=== PATIENT | female | born 1960 | race Caucasian/White ===

== ENCOUNTER 2021-02-25 06:10 | Observation (INO) | payer MEDICAID, SELFPAY ==
[2021-02-25] VITALS (9 sets, daily range): BP systolic 113–165; BP diastolic 71–100; PULSE 67–102; RESP 15–20; TEMP 36.8–37.1; O2SAT 94–99; BMI 24.6; BMI 23.8
--- NOTE | 2021-02-25 06:38 | CT_ITS ---
PROCEDURE INFORMATION: Exam: CT Abdomen And Pelvis With Contrast Exam date and time: 02/25/2021 6:38 AM Age: 61 years old Clinical indication: Abdominal pain; Patient HX: Epigastric pain with vomiting; Additional info: Upper abd pain TECHNIQUE: Imaging protocol: Computed tomography of the abdomen and pelvis with contrast. Radiation optimization: All CT scans at this facility use at least one of these dose optimization techniques: automated exposure control; mA and/or kV adjustment per patient size (includes targeted exams where dose is matched to clinical indication); or iterative reconstruction. Contrast material: ISOVUE; Contrast volume: 75 ml; Contrast route: IV; COMPARISON: No relevant prior studies available. FINDINGS: Lungs: Minor dependent right basal atelectasis. Mediastinal space: Possible tiny hiatal hernia. Liver: Mild hepatomegaly. Gallbladder and bile ducts: Calcified stones within the gallbladder. Dilated common and possibly central intrahepatic biliary ducts. Pancreas: Pancreatic calcifications. Spleen: Normal. No splenomegaly. Adrenal glands: Normal. No mass. Kidneys and ureters: Atrophic left kidney. Stomach and bowel: Unremarkable. No obstruction. No mucosal thickening. Appendix: No evidence of appendicitis. Intraperitoneal space: Unremarkable. No free air. No significant fluid collection. Vasculature: Atheromatous vascular calcifications. Lymph nodes: Unremarkable. No enlarged lymph nodes. Urinary bladder: Unremarkable as visualized. Reproductive: Unremarkable as visualized. Bones/joints: Moderate-severe lower lumbar spondylosis with moderate L4-L5 listhesis and convex right scoliosis. Soft tissues: Unremarkable. IMPRESSION: 1. Cholelithiasis with dilated common and possibly central intrahepatic biliary ducts. Further evaluation regarding the distal common bile duct perhaps with MRCP may be useful in assessing for possible obstruction. 2. Pancreatic calcifications perhaps related to chronic pancreatitis. 3. Possible tiny hiatal hernia. 4. Other nonacute findings above.
[2021-02-25 06:41] LABS: Microscopic, Urine URINE MICROSCOPIC (MICROSCOPIC)
[2021-02-25 06:44] LABS: Appearance,Urine CLEAR (Clear); Bilirubin,Urine Negative (Negative); Blood, Urine 1+ (Negative); Color,Urine YELLOW (Yellow); Glucose,Urine (UA) Negative (Negative); Ketones,Urine Negative (Negative); Leukocyte Esterase,Urine TRACE (Negative); Nitrate,Urine Negative (Negative); Protein,Urine TRACE (Negative); Specific Gravity, Urine 1.025 (1.005-1.030); Urobilinogen,Urine 0.2 EU/dl (0.2)
[2021-02-25 06:45] LABS: Basophils # 0.1 K/mm3 (0-0.2); Basophils % 0.5 % (0.1-2.0); Eosinophils # 0.2 K/mm3 (0.0-0.4); Eosinophils % 1.9 % (0.1-12.0); Hematocrit 32.7 % (37.0-47.0); Lymphocytes # 1.5 K/mm3 (0.7-4.5); Lymphocytes % 12.5 % (10-50); Mean Corpuscular HGB Conc 30.6 g/dL (31.8-35.4); Mean Corpuscular Hemoglobin 28.7 pg (27.0-31.2); Mean Corpuscular Volume 93.6 fl (81-99); Mean Platelet Volume 6.9 fl (7.4-10.4); Monocytes # 0.5 K/mm3 (0.1-1.0); Monocytes % 4.3 % (1.7-9.3); Neutrophils # 9.9 K/mm3 (1.8-7.8); Neutrophils % 80.8 % (37.0-80.0); Platelet Count 406 K/mm3 (142-424); Red Cell Distribution Width 13.2 % (11.5-17.5); White Blood Count 12.2 K/mm3 (4.8-10.8)
[2021-02-25 06:48] LABS: Alanine Aminotransferase 11 U/L (12-78); Albumin Level 4.1 g/dl (3.5-5.0); Albumin/Globulin Ratio 1.1 (1.1-1.8); Alkaline Phosphatase 102 U/L (38-126); Amylase 83 U/L (30-110); Anion Gap 15.8 mEq/L (5-15); Aspartate Amino Transferase 21 U/L (14-36); Bilirubin,Total 0.4 mg/dl (0.2-1.3); Blood Urea Nitrogen 14 mg/dl (7-17); Calcium 9.8 mg/dl (8.4-10.2); Carbon Dioxide 16 mmol/L (22.0-30.0); Chloride 114 mmol/L (98-107); Creatinine Clearance Estimated 49 mL/min (50-200); Estimated Glomerular Filt Rate 42 ml/min (>60); GFR (African American) 51 ML/MIN (>60); Globulin 3.7 g/dL (1.3-3.2); Glucose 94 mg/dl (74-100); Lipase 64 U/L (23-300); Potassium 3.8 mmoL/L (3.5-5.1); Sodium 142 mmol/L (136-145); Total Protein,Serum 7.8 g/dl (6.3-8.2)
[2021-02-25 06:54] LABS: Bacteria,Urine Trace /lpf
[2021-02-25 06:54] LABS: C-Reactive Protein 11.4 mg/L (0-4)
--- NOTE | 2021-02-25 06:59 | XR_ITS ---
PROCEDURE INFORMATION: Exam: XR Chest Exam date and time: 02/25/2021 6:59 AM Age: 61 years old Clinical indication: Chest wall pain; Patient HX: Lower chest pain/ upper abdomen pain with vomiting TECHNIQUE: Imaging protocol: XR of the chest. Views: 2 views. COMPARISON: No relevant prior studies available. FINDINGS: Lungs: Hyperinflation. No consolidation. Pleural spaces: Unremarkable. No pleural effusion. No pneumothorax. Heart/Mediastinum: Unremarkable. No cardiomegaly. Bones/joints: Unremarkable. IMPRESSION: 1. Hyperinflation consistent with mild COPD. 2. Otherwise no acute pathology.
[2021-02-25 07:11] LABS: Erythrocyte Sedimentation Rate > 140 mm/hr (0-30)
--- NOTE | 2021-02-25 07:38 | HMH.EDNVD ---
ED Disposition Clinical Impression: Tobacco use Cholelithiasis Qualifiers: Cholelithiasis location: gallbladder Cholecystitis presence: without cholecystitis Biliary obstruction: without biliary obstruction Qualified Code(s): K80.20 - Calculus of gallbladder without cholecystitis without obstruction COPD (chronic obstructive pulmonary disease) Qualifiers: COPD type: unspecified COPD Qualified Code(s): J44.9 - Chronic obstructive pulmonary disease, unspecified Disposition: Admitted As Inpatient Condition on Discharge: Good Instructions: DI for Acute Abdominal Pain Referrals: Rodo Cordova MD [Primary Care Provider] - - Critical Care Critical Care Time: No Attestation: On 02/25/21, the high probability of a clinically significant, sudden or life threatening deterioration of the following system(s) required my full and direct attention, intervention and personal management. The time I documented below is in addition to time spent performing reported procedures but includes the following listed in this critical care notation. Medical Decision Making - Medical Records Medical records reviewed: Yes: I reviewed the patient's medical records. - Kervin Inquiry Pt receiving controlled substance: No Vital Signs: 02/25/21 06:25 02/25/21 07:01 Temperature 98.7 F Temperature Source Oral Pulse Rate 67 Pulse Rate [Right] 102 H Respiratory Rate 20 Blood Pressure 165/90 H Blood Pressure [Right Arm] 161/96 H Blood Pressure Mean 115 Blood Pressure Mean [Right Arm] 117 Blood Pressure Source [Right Arm] Automatic Cuff Blood Pressure Position [Right Arm] Supine 02 Sat by Pulse Oximetry 97 97 Oxygen Delivery Method Room Air - Lab Data Lab results reviewed: Yes: I reviewed the patient's lab results. Lab Results 02/25/21 06:20: Urine Color Yellow, Urine Appearance Clear, Urine pH 6.0, Ur Specific [place] 1.025, Urine Protein Trace, Urine Glucose (UA) Negative, Urine Ketones Negative, Urine Blood 1+, Urine Nitrate Negative, Urine Bilirubin Negative, Urine Urobilinogen 0.2, Ur Leukocyte Esterase Trace, Urine RBC 5-10, Urine WBC 5-10, Ur Squamous Epith Cells 3-5, Urine Bacteria Trace 02/25/21 06:25: WBC 12.2 H, RBC 3.50 L, Hgb 10.0 L, Hct 32.7 L, MCV 93.6, MCH 28.7, MCHC 30.6 L, RDW 13.2, Plt Count 406, MPV 6.9 L, Neut % (Auto) 80.8 H, Lymph % (Auto) 12.5, [place] % (Auto) 4.3, Eos % (Auto) 1.9, Baso % (Auto) 0.5, Neut # (Auto) 9.9 H, Lymph # (Auto) 1.5, [place] # (Auto) 0.5, Eos # (Auto) 0.2, Baso # (Auto) 0.1, ESR > 140 H 02/25/21 06:25: Sodium 142, Potassium 3.8, Chloride 114 H, Carbon Dioxide 16 L, Anion Gap 15.8 H, BUN 14, Creatinine 1.30 H, Estimated Creat Clear 49, Estimated GFR 42 L, Est GFR ( Amer) 51 L, Glucose 94, Calcium 9.8, Total Bilirubin 0.4, AST 21, ALT 11 L, Alkaline Phosphatase 102, C-Reactive Protein 11.4 H, Total Protein 7.8, Albumin 4.1, Globulin 3.7 H, Albumin/Globulin Ratio 1.1, Amylase 83, Lipase 64 Result diagrams: 02/25/21 06:25 02/25/21 06:25 Orders (Tests/Meds): ED MEDICATIONS Generic Name Dose Route Start Last Admin Trade Name Freq PRN Reason Stop Dose Admin Sodium Chloride 8 ml 02/25/21 06:35 Sodium Chloride 0.9% 10ml Vial IV 03/27/21 06:34 NEEDED PRN dilute pepcid Discontinued Medications Generic Name Dose Route Start Last Admin Trade Name Freq PRN Reason Stop Dose Admin Famotidine 20 mg 02/25/21 06:35 02/25/21 06:38 Famotidine 20mg/2ml Vial IV 02/25/21 06:36 20 mg ONCE ONE Administration Sodium Chloride 1,000 mls @ 999 mls/hr 02/25/21 06:45 02/25/21 06:38 Sod Chlor 0.9% 1000ml Bag IV 02/25/21 07:45 999 mls/hr .Q1H1M CARLY Administration Iopamidol 75 ml 02/25/21 07:21 02/25/21 07:22 Iopamidol-370 (76%);100ml Bottle IV 02/25/21 07:22 75 ml ONCE ONE Administration Ketorolac Tromethamine 30 mg 02/25/21 06:35 02/25/21 06:38 Ketorolac 30mg/Ml Vial IV 02/25/21 06:36 30 mg ONCE ONE Administration Metoclopram
--- NOTE | 2021-02-25 07:52 | ECG_ITS ---
APPROVED REPORT Exam: Resting ECG HR:88 bpm ECG Measurements Heart Rate 88 AXES RI 182 P 74 QRSd 98 QRS 5 QT 380 T 71 QTc 459 Conclusion Normal sinus rhythm Possible Left atrial enlargement Borderline ECG Electronically signed by : Rodo Cordova, 02/25/2021 16:38:12
[2021-02-25 08:17] LABS: Troponin I < 0.01 ng/ml (0.00-0.034)
--- NOTE | 2021-02-25 08:22 | PC.NURSE ---
psychiatric social worker supervisor notified of decision of admission and need for bed placement
--- NOTE | 2021-02-25 09:51 | PC.NURSE ---
Lab contacted, pt covid test is 32 minutes left
--- NOTE | 2021-02-25 10:51 | PC.NURSE ---
gave report to Cathy 2nd floor nurse at this time
[2021-02-25 12:13] LABS: Troponin I < 0.01 ng/ml (0.00-0.034)
--- NOTE | 2021-02-25 14:27 | HMH.PHAVTE ---
[facility] Pharmacy VTE Monitoring - Patient Demographics Admission date: 02/25/21 Report Date: 02/25/21 Time: 14:27 Allergies/Adverse Reactions: Patient Allergies latex Allergy (Verified 02/25/21 06:34) nifedipine [From Procardia] Allergy (Verified 02/25/21 06:34) Height: 1.65 m Weight: 65.034 kg Patient Problems: Current Active Problems Cholelithiasis (Acute) Tobacco use (Acute) COPD (chronic obstructive pulmonary disease) (Acute) - VTE Risk Labs: VTE Related Lab Results Hgb 10.0 g/dL (12.2-16.2) L 02/25/21 06:25 Hct 32.7 % (37.0-47.0) L 02/25/21 06:25 Plt Count 406 K/mm3 (142-424) 02/25/21 06:25 BUN 14 mg/dl (7-17) 02/25/21 06:25 Creatinine 1.30 mg/dl (0.52-1.04) H 02/25/21 06:25 Estimated Creat Clear 49 mL/min (50-200) 02/25/21 06:25 VTE Score: 2 - Prophylaxis VTE Prophylaxis Ordered?: Yes Types of VTE Prophylaxis: TEDS Knee High Location of Applied Device: Bilateral Lower Extremeties
[2021-02-25 15:11] LABS: Troponin I < 0.01 ng/ml (0.00-0.034)
--- NOTE | 2021-02-25 16:31 | HMH.HP ---
*Admission Date: 02/25/21 *Chief complaint: Right upper quadrant pain, vomiting. *History of present illness: 61-year-old white female who moved here from [place] approximately a month ago to live with her daughter here in town and who has been afflicted with gallbladder problems over the past several years. She has been told a couple of times that she has gallstones but has never undergone cholecystectomy. She had significant episodes of abdominal pain, nausea and bloating through the night last night and this morning and came to the emergency department. In the emergency department she was noted to have right upper quadrant pain. CT scan showed dilated gallbladder duct with stones in the gallbladder and no evidence of obstruction on her liver enzymes. She was found to be mildly dehydrated. Admitted to hospital for further evaluation and further diagnostic testing. [facility] History I have reviewed the patient's past medical history: Yes Medical History: Reports:: Chronic Obstructive Pulmonary Disease (COPD) (Takes as needed inhalers rarely), Hypertension (Previous medications for hypertension have caused orthostasis) Denies:: Cancer, Diabetes Mellitus Type 1, Diabetes Mellitus Type 2, MRSA *Have you ever received a pneumonia vaccine?: No *Have you received a flu vaccine this season?: Yes Comment:: Chronic back pain, uses cane to ambulate for pain Other Surgeries: Yes: Amputation: No Fractures: No - *Social History Last grade of school completed: 9th or 10th Smoking Status: Current every day smoker Tobacco Type: cigarettes # Packs/Day (cigarettes): 1 Alcohol Intake: never *Occupational Status:: unemployed, disabled Housing: apartment Household Members: family *Travel in the last 8 weeks: None Family Hx:: No significant family history Review of Systems - Review of Systems Review of systems:: pertinent systems reviewed and negative unless documented below Complete 10 point review of systems completed. Negative except for back pain and leg pain when ambulating. No recent change in this. No changes in bowel or bladder habits. Upper GI symptoms as noted above. Negative for cardiac or pulmonary symptoms. - *Neurologic Denies dizziness, Denies headache(s), Denies seizure-like activity Meds Home Medications Medication Instructions Recorded Confirmed Type Baclofen [Lioresal 10mg tablet] 10 mg PO TID 02/25/21 02/25/21 History Ibuprofen [Ibuprofen 800mg 800 mg PO QIDP PRN 02/25/21 02/25/21 History Tablet] Pantoprazole Sodium 40 mg PO DAILY 02/25/21 02/25/21 History Allergies Allergy/AdvReac Type Severity Reaction Status Date / Time latex Allergy Verified 02/25/21 06:34 nifedipine [From Procardia] Allergy Verified 02/25/21 06:34 Exam Vital signs and Labs for Last 24 Hours: Temp Pulse Resp BP Pulse Ox 98.2 F 83 16 152/92 H 97 02/25/21 14:59 02/25/21 14:59 02/25/21 14:59 02/25/21 14:59 02/25/21 14:59 Laboratory Results - last 24 hr 02/25/21 06:20: Urine Color Yellow, Urine Appearance Clear, Urine pH 6.0, Ur Specific [place] 1.025, Urine Protein Trace, Urine Glucose (UA) Negative, Urine Ketones Negative, Urine Blood 1+, Urine Nitrate Negative, Urine Bilirubin Negative, Urine Urobilinogen 0.2, Ur Leukocyte Esterase Trace, Urine RBC 5-10, Urine WBC 5-10, Ur Squamous Epith Cells 3-5, Urine Bacteria Trace 02/25/21 06:25: WBC 12.2 H, RBC 3.50 L, Hgb 10.0 L, Hct 32.7 L, MCV 93.6, MCH 28.7, MCHC 30.6 L, RDW 13.2, Plt Count 406, MPV 6.9 L, Neut % (Auto) 80.8 H, Lymph % (Auto) 12.5, [place] % (Auto) 4.3, Eos % (Auto) 1.9, Baso % (Auto) 0.5, Neut # (Auto) 9.9 H, Lymph # (Auto) 1.5, [place] # (Auto) 0.5, Eos # (Auto) 0.2, Baso # (Auto) 0.1, ESR > 140 H 02/25/21 06:25: Sodium 142, Potassium 3.8, Chloride 114 H, Carbon Dioxide 16 L, Anion Gap 15.8 H, BUN 14, Creatinine 1.30 H, Estimated Creat Clear 49, Estimated GFR 42 L, Est GFR ( Amer) 51 L, Glucose 94, Calcium 9.8, Total Bilirubin 0.4, AST 21,
--- NOTE | 2021-02-25 18:14 | PC.NURSE ---
PT IS RESTING IN BED. AMBULATES AROUND THE ROOM WITH CANE. PT HAS NOT COMPLAINED OF ANY PAIN SINCE ARRIVING TO THE FLOOR. TOLERATING CLEAR LIQUIDS. ALERT AND ORIENTED X4. PT STATES SHE HAS BEEN HAVING ISSUES WITH ABDOMINAL PAIN FOR SEVERAL YEARS. LUNG SOUNDS CLEAR. ABDOMEN SOFT WITH SOME TENDERNESS IN THE RUQ. NORMAL BOWEL SOUNDS. PT WILL BE NPO AFTER MIDNIGHT FOR ULTRASOUND AND [facility] CONSULT. VSS. WILL CONTINUE TO MONITOR.
[2021-02-26] VITALS (14 sets, daily range): BP systolic 118–186; BP diastolic 68–111; PULSE 69–89; RESP 16–18; TEMP 36.5–37.2; O2SAT 90–99; BMI 23.6
--- NOTE | 2021-02-26 03:32 | PC.NURSE ---
No acute changes overnight. A&O. Pt c/o of pain in RUQ, relieved with morphine per dec. Pt has slept well through the night. Independent with ambulation to BR. Lungs CTA, on room air. Bowel sounds x4, abd is soft and nontender. NPO since midnight. IV patent, NS @ 100. VSS, call light in reach, no concerns at this time.
[2021-02-26 07:17] LABS: Alanine Aminotransferase 10 U/L (12-78); Albumin Level 3.8 g/dl (3.5-5.0); Albumin/Globulin Ratio 1.2 (1.1-1.8); Alkaline Phosphatase 87 U/L (38-126); Anion Gap 11.9 mEq/L (5-15); Aspartate Amino Transferase 21 U/L (14-36); Basophils % 0.6 % (0.1-2.0); Bilirubin,Total 0.4 mg/dl (0.2-1.3); Blood Urea Nitrogen 12 mg/dl (7-17); Calcium 9.2 mg/dl (8.4-10.2); Carbon Dioxide 18 mmol/L (22.0-30.0); Chloride 115 mmol/L (98-107); Chol/HDL Ratio 5.2 (1-3.5); Cholesterol 218 mg/dl (140-200); Creatinine Clearance Estimated 61 mL/min (50-200); Eosinophils # 0.3 K/mm3 (0.0-0.4); Eosinophils % 4.7 % (0.1-12.0); Estimated Glomerular Filt Rate 57 ml/min (>60); GFR (African American) 68 ML/MIN (>60); Globulin 3.2 g/dL (1.3-3.2); Glucose 68 mg/dl (74-100); HDL Cholesterol 42 mg/dl (40-60); Hematocrit 31.1 % (37.0-47.0); Hemoglobin 9.3 g/dL (12.2-16.2); Lymphocytes # 1.5 K/mm3 (0.7-4.5); Lymphocytes % 22.2 % (10-50); Magnesium 1.9 mg/dl (1.6-2.3); Mean Corpuscular HGB Conc 29.9 g/dL (31.8-35.4); Mean Corpuscular Hemoglobin 28.6 pg (27.0-31.2); Mean Corpuscular Volume 95.8 fl (81-99); Monocytes # 0.4 K/mm3 (0.1-1.0); Monocytes % 5.3 % (1.7-9.3); Neutrophils # 4.5 K/mm3 (1.8-7.8); Neutrophils % 67.2 % (37.0-80.0); Platelet Count 380 K/mm3 (142-424); Potassium 3.9 mmoL/L (3.5-5.1); Red Blood Count 3.24 M/mm3 (4.20-5.40); Red Cell Distribution Width 13.4 % (11.5-17.5); Sodium 141 mmol/L (136-145); Triglycerides 106 mg/dl (30-150); VLDL Cholesterol 21 mg/dL (0-40); White Blood Count 6.7 K/mm3 (4.8-10.8)
[2021-02-26 07:28] LABS: Direct LDL Cholesterol 114.79 mg/dL (100-129)
--- NOTE | 2021-02-26 07:36 | HMH.ACPN2 ---
Internal Medicine - PN: Eulalia *Date: 02/26/21 *Time: 07:36 Interval history: Patient with minimal abdominal pain overnight. She did not eat anything however which is usually a trigger. Has her baseline back and hip pain this morning. Exam Vital signs and Labs for Last 24 Hours: Temp Pulse Resp BP Pulse Ox 98.1 F 83 16 168/77 H 98 02/26/21 03:33 02/26/21 03:33 02/26/21 03:33 02/26/21 03:33 02/26/21 03:33 Laboratory Results - last 24 hr 02/25/21 06:25: Troponin I < 0.01 02/25/21 11:44: Troponin I < 0.01 02/25/21 14:40: Troponin I < 0.01 02/26/21 06:44: WBC 6.7 D, RBC 3.24 L, Hgb 9.3 L, Hct 31.1 L, MCV 95.8, MCH 28.6, MCHC 29.9 L, RDW 13.4, Plt Count 380, MPV 7.0 L, Neut % (Auto) 67.2, Lymph % (Auto) 22.2, [place] % (Auto) 5.3, Eos % (Auto) 4.7, Baso % (Auto) 0.6, Neut # (Auto) 4.5, Lymph # (Auto) 1.5, [place] # (Auto) 0.4, Eos # (Auto) 0.3, Baso # (Auto) 0.0 02/26/21 06:44: Sodium 141, Potassium 3.9, Chloride 115 H, Carbon Dioxide 18 L, Anion Gap 11.9, BUN 12, Creatinine 1.00 D, Estimated Creat Clear 61, Estimated GFR 57 L, Est GFR ( Amer) 68 D, Glucose 68 L, Calcium 9.2, Magnesium 1.9, Total Bilirubin 0.4, AST 21, ALT 10 L, Alkaline Phosphatase 87, Total Protein 7.0, Albumin 3.8, Globulin 3.2, Albumin/Globulin Ratio 1.2, Triglycerides 106, Cholesterol 218 H, LDL Cholesterol Direct 114.79, VLDL Cholesterol 21, HDL Cholesterol 42, Cholesterol/HDL Ratio 5.2 H I & O for Last 24 hours: Intake & Output 02/23/21 02/24/21 02/25/21 02/26/21 11:59 11:59 11:59 11:59 Intake Total 960 / 960 Balance 960 / 960 Weight 143 lb 6 oz 142 lb 2 oz Microbiology Reports for the Last 24 Hours: Microbiology 02/25/21 07:48 Nasopharyngeal Coronavirus COVID-19 PCR - Final Narrative: Alert, pleasant. Bedside echocardiogram being done. Heart rate regular. Lungs have good air movement. No change in abdominal exam or extremity exam. Neurologically intact. Oropharynx clear Assessment and Plan (1) Hypertension Status: Acute Category: Medical Code(s): I10 - Essential (primary) hypertension (2) COPD (chronic obstructive pulmonary disease) Status: Acute Qualifiers: COPD type: unspecified COPD Qualified Code(s): J44.9 - Chronic obstructive pulmonary disease, unspecified Category: Medical Code(s): J44.9 - Chronic obstructive pulmonary disease, unspecified (3) Cholelithiasis Status: Acute Qualifiers: Cholelithiasis location: gallbladder Cholecystitis presence: without cholecystitis Biliary obstruction: without biliary obstruction Qualified Code(s): K80.20 - Calculus of gallbladder without cholecystitis without obstruction Category: Medical Code(s): K80.20 - Calculus of gallbladder without cholecystitis without obstruction (4) Tobacco use Status: Acute Category: Social Hx Code(s): Z72.0 - Tobacco use - Assessment and plan all Dx Assessment and Plan for all problems:: No change in plan outlined in H&P. Ultrasound of abdomen today. MRCP. GI consultation for ERCP evaluation versus referral to surgery for cholecystectomy.
--- NOTE | 2021-02-26 07:44 | MR_ITS ---
PROCEDURE: MR ABDOMEN WO CON CLINICAL INDICATION: ABD PAIN, ABNORMAL CT COMPARISON: CT CT ABDOMEN PELVIS W CON from 02/25/2021 US US GALLBLADDER from 02/26/2021 TECHNIQUE: Routine multiplanar multi echo sequences are performed without gadolinium enhancement. FINDINGS: The patient was scheduled for MRI and MRCP. However, the patient was not able to finish both exams and only finish the MRI of the abdomen. There is moderate-sized hiatal hernia. The gallbladder is distended with numerous gallstones. Phrygian cap is present involving the gallbladder. The common hepatic duct measures approximately 8 mm in the common bile duct measures approximately 8 mm. No obvious common duct stones apparent. No pancreatic ductal dilatation. Septated right renal cyst is noted at approximately 14 mm. IMPRESSION: 1. Cholelithiasis with distended gallbladder. 2. Mild prominence of the common bile duct at 8-9 mm. No obvious common duct stones. Patient was not able to tolerate MRCP. 3. Medium-sized hiatal hernia. 4. 13 mm septated right renal cyst. 5. 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 Dictated by: Varghese Godinez MD 02/26/2021 15:03 Varghese Godinez MD in [place] 02/26/2021 15:03
--- NOTE | 2021-02-26 08:00 | US_ITS ---
PROCEDURE: US GALLBLADDER CLINICAL INDICATION: abd pain COMPARISON: CT CT ABDOMEN PELVIS W CON from 02/25/2021 FINDINGS: Pancreas: Unremarkable/Not well seen Liver: Unremarkable. There is appropriate direction of blood flow within a non dilated portal vein. Right kidney: No hydronephrosis. A 1.7 cm cystic lesion is present in the upper pole of the right kidney with some internal echoes. Gallbladder: Numerous gallstones are present. The gallbladder is enlarged at 11 x 5 cm. Common bile duct is prominent at 8 mm. There is some minimal intrahepatic ductal dilatation. No gallbladder wall thickening or pericholecystic fluid. IMPRESSION: 1. Cholelithiasis with mildly dilated common bile duct and enlarged gallbladder. 2. Complex right renal cyst. Consider nonemergent MRI follow-up without and with gadolinium enhancement. Dictated by: Varghese Godinez MD 02/26/2021 10:05 Varghese Godinez MD in [facility] 02/26/2021 10:05
--- NOTE | 2021-02-26 08:00 | CA_ITS ---
APPROVED REPORT EXAM: Comprehensive 2D, Doppler, and color-flow Echocardiogram Hand Salter: Mary [place] RVT Ht: 5 ft 5 in Wt: 148lbs BSA: 1.74 BP: 152/92 mmHg Indications: MURMUR,COPD,SMOKER,HTN,CHOLELITHIASIS 2D Dimensions LVOT 2.20 cm (M/F) 1.5-2.5 M-Mode Dimensions RVDd 1.60 cm (0.9-2.6) LA Diam 3.40 cm (1.9-4.0) LVDd 5.80 cm (3.5-5.7) Ao Diam 2.70 cm (2.0-3.7) LVDs 4.00 cm (3.5-5.7) AV Cusp 1.80 cm (1.5-2.6) IVSd 0.50 cm (0.6-1.1) PWd 0.50 cm (0.6-1.1) EF (Teich) 58.10% FS 31.00% EDV (Teich) 167.00 mL ESV (Teich) 70.00 mL LV Diastology E/A Ratio 0.8 MED E' 5.07 (< 7 cm/sec) E'/MED E' Ratio 23.90 (>14) LAT E' 8.68 (<10 cm/sec) E/LAT E' Ratio 13.90 (>14) Aortic Valve AoV Peak Tutu. 123.00 (50-130 cm/s) AO Peak GR. 6.00 mmHg Mitral Valve MV E Max Tutu. 121.00 (40-130 cm/s) MV A Velocity 143.00 (40-130 cm/s) E/A Ratio 0.80 Pulmonary Valve PV Peak Velocity 85.90 (50-150 cm/s) Left Ventricle Technically difficult study because of the patient fact in poor acoustic windows. Left atrium is mildly enlarged, left ventricle is normal size, mild concentric left ventricular hypertrophy, visually estimated ejection fraction 55% with no regional wall motion abnormality, grade 1 diastolic dysfunction seen with tissue Doppler evidence of raise left atrial pressure. Right Ventricle Right atrium and right ventricle are normal size and contractility. Aortic Valve Aortic valve is minimally thickened and fibrosed, there is no aortic stenosis or aortic insufficiency. Mitral Valve Mitral valve is grossly normal, there is mild mitral regurgitation. Tricuspid Valve Tricuspid grossly normal, there is mild tricuspid regurgitation, tricuspid regurgitation jet velocity is inadequate for calculation of the right ventricular systolic pressure. Pulmonic Valve Pulmonic valve is poorly visualized. Great Vessels Aortic root is normal size. Pericardium No significant pericardial effusion noted. Conclusion 1. Mildly enlarged left atrium, normal left ventricular size, mild concentric left ventricular hypertrophy, visually estimated ejection fraction 55% with no regional wall motion abnormality, grade 1 diastolic dysfunction seen with tissue Doppler evidence of raise left atrial pressure. 2. Mild mitral and tricuspid regurgitation. 3. No significant pericardial effusion noted. Electronically signed by : Ruben Orourke, 02/26/2021 19:58:10
--- NOTE | 2021-02-26 08:34 | HMH.GSCON ---
*Admission Date: 02/25/21 *Reason for consult:: Gallbladder *History of present illness: Patient is a 61-year-old female who had recently moved back to [place] from [place]. She has a longstanding history of known gallstones. She states that she has had gallstones for about 20 years. These have occasionally caused her problems. She states that she has been having symptomatology for about 6 months this most recent time. Symptoms are usually characterized by bilateral upper quadrant pain radiating into the back and shoulder. She did not states that it radiates to her colon . She describes this as sharp pains and often has breakthrough loose stools. This often occurs postprandially. Early yesterday morning her symptoms were quite severe and she presented to the emergency department where she was seen and evaluated. She underwent CT scan of the abdomen and pelvis which revealed calcified gallstones with dilated bile ducts. She was admitted for inpatient management. Gastroenterology and surgical consultations were obtained. She has had normal liver function tests. She is scheduled for MRCP and gallbladder ultrasound today. Review of Systems - Review of Systems Review of systems:: pertinent systems reviewed and negative unless documented below - *Neurologic Denies dizziness, Denies headache(s), Denies seizure-like activity [facility] History Medical History: Reports:: Chronic Obstructive Pulmonary Disease (COPD) (Takes as needed inhalers rarely), Hypertension (Previous medications for hypertension have caused orthostasis) Denies:: Cancer, Diabetes Mellitus Type 1, Diabetes Mellitus Type 2, MRSA *Have you ever received a pneumonia vaccine?: No *Have you received a flu vaccine this season?: Yes Other Surgeries: Yes: Amputation: No Fractures: No - *Social History Last grade of school completed: 9th or 10th Smoking Status: Current every day smoker Tobacco Type: cigarettes # Packs/Day (cigarettes): 1 Alcohol Intake: never *Occupational Status:: unemployed, disabled Housing: apartment Household Members: family *Travel in the last 8 weeks: None Family Hx:: No significant family history Meds Home Medications Medication Instructions Recorded Confirmed Type Baclofen [Lioresal 10mg tablet] 10 mg PO TID 02/25/21 02/25/21 History Ibuprofen [Ibuprofen 800mg 800 mg PO QIDP PRN 02/25/21 02/25/21 History Tablet] Pantoprazole Sodium 40 mg PO DAILY 02/25/21 02/25/21 History Allergies Allergy/AdvReac Type Severity Reaction Status Date / Time latex Allergy Verified 02/25/21 06:34 nifedipine [From Procardia] Allergy Verified 02/25/21 06:34 Exam Vital signs and Labs for Last 24 Hours: Temp Pulse Resp BP Pulse Ox 98.1 F 83 16 168/77 H 98 02/26/21 03:33 02/26/21 03:33 02/26/21 03:33 02/26/21 03:33 02/26/21 03:33 Laboratory Results - last 24 hr 02/25/21 11:44: Troponin I < 0.01 02/25/21 14:40: Troponin I < 0.01 02/26/21 06:44: WBC 6.7 D, RBC 3.24 L, Hgb 9.3 L, Hct 31.1 L, MCV 95.8, MCH 28.6, MCHC 29.9 L, RDW 13.4, Plt Count 380, MPV 7.0 L, Neut % (Auto) 67.2, Lymph % (Auto) 22.2, [place] % (Auto) 5.3, Eos % (Auto) 4.7, Baso % (Auto) 0.6, Neut # (Auto) 4.5, Lymph # (Auto) 1.5, [place] # (Auto) 0.4, Eos # (Auto) 0.3, Baso # (Auto) 0.0 02/26/21 06:44: Sodium 141, Potassium 3.9, Chloride 115 H, Carbon Dioxide 18 L, Anion Gap 11.9, BUN 12, Creatinine 1.00 D, Estimated Creat Clear 61, Estimated GFR 57 L, Est GFR ( Amer) 68 D, Glucose 68 L, Calcium 9.2, Magnesium 1.9, Total Bilirubin 0.4, AST 21, ALT 10 L, Alkaline Phosphatase 87, Total Protein 7.0, Albumin 3.8, Globulin 3.2, Albumin/Globulin Ratio 1.2, Triglycerides 106, Cholesterol 218 H, LDL Cholesterol Direct 114.79, VLDL Cholesterol 21, HDL Cholesterol 42, Cholesterol/HDL Ratio 5.2 H I & O for Last 24 hours: Intake & Output 02/23/21 02/24/21 02/25/21 02/26/21 11:59 11:59 11:59 11:59 Intake Total 960 / 960 Balance 960 / 960 Weight
--- NOTE | 2021-02-26 10:42 | HMH.PHAINT ---
MEDICATION RECONCILIATION COMPLETED ON PATIENT USING EXTERNAL FILL HISTORY FROM PHARMACY AND PATIENT INTERVIEW. -JARET TAI, JAKOBD
--- NOTE | 2021-02-26 15:30 | HMH.ANESCL ---
[facility] Anesthesia Checklist - Patient Identification Patient Identification: Arm Band - Structural Data Admitted From: Home Planned Operative Procedure/s: egd Consent for Planned Operative Procedure(s) Verified: Yes Verified Documents: Surgical Consent, History and Physical - NPO Status Verified Time NPO: 00:00 - Additional verifications Anesthesia Reactions: No - Airway Assessment C-Spine Mobility Assessed: Yes (mp2) TMJ Mobility Assessed: Yes Dentition: Edentulous - Neurological Assessment Level of Consciousness: Awake, Alert - Anesthesia Plan Anesthesia Risk discussed: Yes Anesthesia Plan: Verified ASA Class: III Anesthesia Type: MAC [facility] History I have reviewed the patient's past medical history: Yes Medical History: Reports:: Chronic Obstructive Pulmonary Disease (COPD) (Takes as needed inhalers rarely), Gastroesophageal Reflux Disease(GERD), Hypertension (Previous medications for hypertension have caused orthostasis) Denies:: Cancer, Diabetes Mellitus Type 1, Diabetes Mellitus Type 2, MRSA *Have you ever received a pneumonia vaccine?: No *Have you received a flu vaccine this season?: Yes Anesthesia experience/problems:: nac Other Surgeries: Yes: Amputation: No Fractures: No - *Social History Last grade of school completed: 9th or 10th Smoking Status: Current every day smoker Tobacco Type: cigarettes # Packs/Day (cigarettes): 1 Alcohol Intake: never Substance Use Type: denies use *Occupational Status:: unemployed, disabled Housing: apartment Household Members: family *Travel in the last 8 weeks: None Family Hx:: No significant family history
--- NOTE | 2021-02-26 15:48 | HMH.PROC ---
[facility] Procedure Note Procedure Note:: Upper Endoscopy Procedure Report: Esophagogastroduodenoscopy with cold biopsies Endoscopost: Lauri Barr II, MD Referring Physician: Rodo Cordova M.D./Julian Givens MD Date of Procedure: February 26, 2021 Equipment: Olympus GIF 190 standard upper endoscope Sedation: MAC sedation Indications: Mrs. Mendoza is a 61-year-old female with chronic gallstones. She has had episodic abdominal pain in the upper abdomen with nausea and bloating. She came to the emergency department with some right upper quadrant pain. She had a dilated biliary tree with cholelithiasis but no choledocholithiasis. There were also pancreatic calcifications consistent with chronic pancreatitis. There was also a small hiatal hernia. The patient had an MRI (not MRCP) which showed mild prominence of the common bile duct up to 9 mm. She had an ultrasound subsequently that showed gallstones and a complex right renal cyst. Additionally, the patient has had moderate anemia with hemoglobin 9.3 and hematocrit 31.1. The patient's liver and pancreatic chemistries were normal (amylase 83, lipase 64, ALT 10, alkaline phosphatase 87 and total bilirubin 0.4). The patient reports no melena. The patient has been using ibuprofen 800 mg by mouth 3 times daily. Procedure: Prior to the procedure, a history and physical exam was performed, and patient's medications and allergies were reviewed. The risks, benefits and alternatives of the sedation and procedure were discussed with the patient. All questions were answered and informed consent was obtained. The patient was brought to the procedure room. Patient identification and proposed procedure were verified by the physician and the nurse. The patient was placed in a left lateral decubitus position and the scope was passed under direct vision. Throughout the procedure, the patient's blood pressure, pulse, and oxygen saturations were monitored continuously. The upper GI endoscopy was accomplished without difficulty. The patient tolerated the procedure well. Findings: The scope was passed directly into the upper esophagus and advanced to the third portion of the duodenum. The post bulbar duodenum and duodenal bulb were normal with normal mucosa and slightly scalloped conniventes. Cold biopsies were taken from the post bulbar duodenum and duodenal bulb to rule out celiac disease. The scope was withdrawn through a normal duodenal bulb and widely patulous pylorus into the stomach. There was some reactive gastropathy of the antrum. Upon retroflexion there was a large cardia ulceration that was along the lesser curvature and cardia and was approximately 2.5 cm. There was some margination and some surface irregularity and cold biopsies were taken from the margin as well as the ulcer base. The scope was then withdrawn into the esophagus. There was a distal esophageal ring. There was no evidence of reflux esophagitis, Santillan's or other esophageal mucosal abnormality. The remainder of the esophageal mucosa was normal. Impression: 1. Proximal gastric ulceration (2.5 cm) with margination and deep ulcer base in the cardia of the stomach/lesser curvature near the GE junction just below hiatal hernia/diaphragmatic hiatus?rule out benign versus malignant ulceration Plan: This large proximal gastric ulceration is in an unusual place for NSAID ulceration of the stomach. I would recommend PPI therapy at high dose plus misoprostol. I did speak with Dr. Julian Givens and subsequently the CAT scan was reviewed again. This was IV contrast only (oral contrast would help delineate it). It does appear that there may be a mass at the GE junction. I will obtain results of biopsy and CEA level. If this is a proximal gastric cancer, I will likely send her to surgical oncology at [facility] (Ruslan Rose MD) or [facility] (Naheed Rubio MD).
[2021-02-26 17:34] LABS: Ferritin 50.9 ng/ml (11.1-264)
--- NOTE | 2021-02-26 18:09 | HMH.CONS ---
*Admission Date: 02/25/21 *Reason for consult:: Abdominal pain/anemia/cholelithiasis/N/V *History of present illness: This is a 61-year-old female who had recently moved back to [place]. She reports 20 years of known gallstones with intermittent nausea and epigastric, RUQ and LUQ pain that she has always assumed was a gallbladder problem . She reports the symptoms have been getting worse in the past 6 months and definitely in the past 2 weeks. She presented to the ER with complaints of abdominal pain left upper quadrant right upper quadrant that sometimes radiates into her back nausea and vomiting but no fever. The patient has a long history of chronic constipation and will skip 3 days with no bowel movement and then will have resultant diarrhea and then return to chronic constipation again. She is tried MiraLAX as needed and reports that buttermilk helps those symptoms. In the ER she was found to have normal LFTs and normal pancreatic chemistries. She did have a mild elevation of her WBCs at 12.2 and after rehydration was noted to have a hemoglobin of 9.3. She had a sed rate greater than 140 and a CRP elevated 11.4. CT scan noted calcified stones in the gallbladder with a dilated common bile duct and possible central intrahepatic biliary ducts. Also noted pancreatic calcifications possibly chronic pancreatitis. They recommended an MRCP. She is scheduled for MRCP and gallbladder ultrasound today. Patient reports she has also had worsening heartburn and reflux recently as well. She denies any alcohol use but does smoke two thirds of a pack of cigarettes daily and has for most of her adult life. Patient also reports that she has been on 800 mg of ibuprofen every 6 hours for the past year for chronic pain but does take pantoprazole. She denies any melena or hematochezia or hematemesis. Dr. Givens was consulted due to her gallstones. [facility] History Medical History: Reports:: Chronic Obstructive Pulmonary Disease (COPD) (Takes as needed inhalers rarely), Gastroesophageal Reflux Disease(GERD), Hypertension (Previous medications for hypertension have caused orthostasis) Denies:: Cancer, Diabetes Mellitus Type 1, Diabetes Mellitus Type 2, MRSA *Have you ever received a pneumonia vaccine?: No *Have you received a flu vaccine this season?: Yes Anesthesia experience/problems:: nac Other Surgeries: Yes: Amputation: No Fractures: No - *Social History Last grade of school completed: 9th or 10th Smoking Status: Current every day smoker Tobacco Type: cigarettes # Packs/Day (cigarettes): 1 Alcohol Intake: never Substance Use Type: denies use *Occupational Status:: unemployed, disabled Housing: apartment Household Members: family *Travel in the last 8 weeks: None Family Hx:: No significant family history Review of Systems - Constitutional Reports anorexia, Denies chills, Denies fever(s), Denies weight gain - ENT Denies dizziness, Denies difficulty swallowing - *Cardiovascular Denies chest pain, Denies shortness of breath, Denies leg swelling - *Respiratory Denies chest congestion, Denies cough, Denies shortness of breath, Denies stridor, Denies wheezing - *Gastrointestinal Reports abdominal pain, Reports constipation, Reports loose stools, Reports heartburn, Reports heartburn, Reports nausea, Reports vomiting, Denies change in bowel habits, Denies difficulty swallowing, Denies incontinent of stools, Denies vomiting blood, Denies bright, red blood in stools, Denies black, tarry stools, Denies pain with swallowing Comments: Worsening heartburn/reflux/N/V/abd pain - *Musculoskeletal Denies muscle cramps, Denies muscle weakness - Integumentary/Breasts Denies changing lesions, Denies yellowing of the skin, Denies rash - *Neurologic Denies dizziness, Denies headache(s), Denies numbness, Denies seizure-like activity, Denies tingling - Endocrine Denies cold intolerance, Denies heat intolerance Meds Home Medications Medication
--- NOTE | 2021-02-27 02:59 | PC.NURSE ---
No acute changes overnight. A&O. PT has c/o abd pain x2, morphine given per mar with desired results. Pt able to ambulate independently in room. Lungs CTA, on room air. Bowel sounds x4, abd soft and nontender. IV patent, NS @ 100. On full liquid diet, tolerating well. VSS, call light in reach, no concerns at this time.
[2021-02-27 04:00] VITALS: BP 178/95; PULSE 83; RESP 16; TEMP 36.9; O2SAT 94
[2021-02-27 04:59] VITALS: BMI 23.6
--- NOTE | 2021-02-27 07:16 | HMH.GSPN ---
Subjective Narrative: Patient states that she feels better today. EGD findings noted. Progress Note: A&P (1) Hypertension Status: Acute (2) COPD (chronic obstructive pulmonary disease) Status: Acute (3) Cholelithiasis Status: Acute (4) Tobacco use Status: Acute (5) Anemia Status: Acute (6) Abdominal pain Status: Acute (7) Nausea and vomiting Status: Acute Assessment and Plan for All Diagnoses:: Source of patient's symptomatology likely findings on upper endoscopy. Concerning for malignant ulcer. Gallstones potentially incidental. Exam Vital signs and Labs for Last 24 Hours: Temp Pulse Resp BP Pulse Ox 98.4 F 83 16 178/95 H 94 L 02/27/21 04:00 02/27/21 04:00 02/27/21 04:00 02/27/21 04:00 02/27/21 04:00 Laboratory Results - last 24 hr 02/26/21 06:44: WBC 6.7 D, RBC 3.24 L, Hgb 9.3 L, Hct 31.1 L, MCV 95.8, MCH 28.6, MCHC 29.9 L, RDW 13.4, Plt Count 380, MPV 7.0 L, Neut % (Auto) 67.2, Lymph % (Auto) 22.2, [place] % (Auto) 5.3, Eos % (Auto) 4.7, Baso % (Auto) 0.6, Neut # (Auto) 4.5, Lymph # (Auto) 1.5, [place] # (Auto) 0.4, Eos # (Auto) 0.3, Baso # (Auto) 0.0 02/26/21 06:44: Sodium 141, Potassium 3.9, Chloride 115 H, Carbon Dioxide 18 L, Anion Gap 11.9, BUN 12, Creatinine 1.00 D, Estimated Creat Clear 61, Estimated GFR 57 L, Est GFR ( Amer) 68 D, Glucose 68 L, Calcium 9.2, Magnesium 1.9, Total Bilirubin 0.4, AST 21, ALT 10 L, Alkaline Phosphatase 87, Total Protein 7.0, Albumin 3.8, Globulin 3.2, Albumin/Globulin Ratio 1.2, Triglycerides 106, Cholesterol 218 H, LDL Cholesterol Direct 114.79, VLDL Cholesterol 21, HDL Cholesterol 42, Cholesterol/HDL Ratio 5.2 H 02/26/21 06:44: Ferritin 50.9 I & O for Last 24 hours: Intake & Output 02/24/21 02/25/21 02/26/21 02/27/21 11:59 11:59 11:59 11:59 Intake Total 960 / 960 240 / 240 Balance 960 / 960 240 / 240 Weight 143 lb 6 oz 142 lb 2 oz 142 lb 2.006 oz
[2021-02-27 07:33] VITALS: BP 151/94; PULSE 88; RESP 19; TEMP 36.7; O2SAT 96
[2021-02-27 08:00] VITALS: O2SAT 96
--- NOTE | 2021-02-27 08:57 | HMH.DCSUM ---
General - General Admission date:: 02/25/21 Discharge date: 02/27/21 HPI HPI: 61-year-old white female who moved here from [place] approximately a month ago to live with her daughter here in town and who has been afflicted with gallbladder problems over the past several years. She has been told a couple of times that she has gallstones but has never undergone cholecystectomy. She had significant episodes of abdominal pain, nausea and bloating through the night last night and this morning and came to the emergency department. In the emergency department she was noted to have right upper quadrant pain. CT scan showed dilated gallbladder duct with stones in the gallbladder and no evidence of obstruction on her liver enzymes. She was found to be mildly dehydrated. Admitted to hospital for further evaluation and further diagnostic testing. Hospital Course Hospital Course: 61-year-old female admitted for abdominal pain, predominantly right upper quadrant on presentation. Patient was made n.p.o. and started on GI prophylaxis. Gastroenterology was consulted for further assistance in management. EGD was performed identifying gastric ulcer. See procedure note for full details. Biopsies obtained during procedure. Concern for atypical ulcer versus possible neoplastic process. Patient is tolerating advancement of diet, had no vomiting or diarrhea. No significant bleeding or change in hemoglobin. Medically stable for discharge home. We will continue PPI and misoprostol for GI prophylaxis and to assist with healing. Of note, she did receive a dose of IV iron supplementation while admitted. Plan for second dose as an outpatient. We will plan for close follow-up to assess continued improvement. Further management pending biopsy results. Notes from procedure note: Impression: 1. Proximal gastric ulceration (2.5 cm) with margination and deep ulcer base in the cardia of the stomach/lesser curvature near the GE junction just below hiatal hernia/diaphragmatic hiatus?rule out benign versus malignant ulceration Plan: This large proximal gastric ulceration is in an unusual place for NSAID ulceration of the stomach. I would recommend PPI therapy at high dose plus misoprostol. Objective Vital signs: Temp Pulse Resp BP Pulse Ox 98.1 F 88 19 151/94 H 96 02/27/21 07:33 02/27/21 07:33 02/27/21 07:33 02/27/21 07:33 02/27/21 08:00 no acute distress - *Routine HEENT Exam Head: Present: normocephalic Eye: Present: EOMI, PERRL ENT: Present: mucous membranes moist - *Routine Neck Exam Present: supple - *Routine Respiratory Exam Present: prolonged expiratory phase. Absent: wheezes, crackles - *Routine Cardiovascular Exam Present: RRR - *Routine Abdominal Exam Present: soft, normoactive bowel sounds, tenderness (Epigastric and right upper quadrant most prominently) - *Routine Rectal Exam Comments: Deferred - *Routine Extremities Exam Absent: cyanosis, clubbing, edema - *Routine Skin Exam Present: warm. Absent: rash Results Labs on day of discharge: Labs from last 24 hours 02/26/21 06:44 Ferritin 50.9 DS: Diagnosis - Discharge Diagnosis (1) Gastric ulcer Status: Acute (2) Hypertension Status: Chronic (3) COPD (chronic obstructive pulmonary disease) Status: Chronic (4) Cholelithiasis Status: Acute (5) Tobacco use Status: Chronic (6) Anemia Status: Chronic (7) Abdominal pain Status: Acute (8) Nausea and vomiting Status: Acute Discharge Plan - Patient Discharge Instructions ACTIVITY: Continue current activity DIET: advance to your usual diet Patient Instructions: Tips to Help You Stop Smoking, DI for Chronic Obstructive Pulmonary Disease, DI for Gallstones - Follow up Plan Follow up with: Lauri Barr MD [Staff Physician] - Rodo Cordova MD [Primary Care Provider] - 03/07/21 11:45 am Disposition: Home, Self-Care
[2021-02-28 20:20] LABS: CA 19-9 26 U/mL (0-35)
== END 2021-02-27 10:35 | disposition home or self-care (01) ==
LOC: ER 08:30 → 2ND 11:37
PROVIDERS: Internal Medicine Gastroenterology; Admitting Provider Internal Medicine Adolescent Medicine; Emergency Provider Emergency Medicine; PCP Internal Medicine Adolescent Medicine; Visit Provider Internal Medicine Adolescent Medicine
PROC: 0DJ08ZZ Inspection of Upper Intestinal Tract, Via Natural or Artificial Opening Endoscopic (ICD-10-PCS; CPT 43235; principal; 2021-02-26 15:30)
DX: K25.9 Gastric ulcer, unspecified as acute or chronic, without hemorrhage or perforation (principal); K80.20 Calculus of gallbladder without cholecystitis without obstruction; J44.9 Chronic obstructive pulmonary disease, unspecified; F17.210 Nicotine dependence, cigarettes, uncomplicated; G89.29 Other chronic pain; Z20.822 Contact with and (suspected) exposure to COVID-19; K21.9 Gastro-esophageal reflux disease without esophagitis; D64.9 Anemia, unspecified; K59.09 Other constipation; I10 Essential (primary) hypertension; Z71.6 Tobacco abuse counseling; E86.0 Dehydration; D64.89 Other specified anemias; Z88.8 Allergy status to other drugs, medicaments and biological substances; Z91.040 Latex allergy status
CPT/HCPCS: 43239; 36415; 71046; 74177; 74181; 76705; 80053; 80061; 81001; 82150; 82378; 82728; 83690; 83735; 84484; 85025; 85651; 86140; 86316; 88305; 88342; 88360; 93005; 93306; 99282; G0378; J2405; Q0138; Q9967; U0003

== ENCOUNTER 2021-03-06 13:20 | Outpatient (CLI) | payer MEDICAID, SELFPAY ==
[2021-03-06 13:30] VITALS: BP 152/95; PULSE 92; RESP 17; TEMP 36.9; O2SAT 95
[2021-03-06 14:00] VITALS: BP 148/81; PULSE 91; RESP 18; TEMP 36.9; O2SAT 93
== END 2021-03-06 14:02 | disposition home or self-care (01) ==
LOC: INF 13:26
PROVIDERS: Visit Provider Internal Medicine Adolescent Medicine
DX: D50.9 Iron deficiency anemia, unspecified (principal)
CPT/HCPCS: 96365; Q0138

== ENCOUNTER → 2021-03-14 15:04 | Outpatient (CLI) | payer MEDICAID, SELFPAY | PROVIDERS: Visit Provider Internal Medicine Gastroenterology | DX: Z01.812 Encounter for preprocedural laboratory examination (principal); Z11.52 Encounter for screening for COVID-19; Z12.11 Encounter for screening for malignant neoplasm of colon | CPT/HCPCS: U0003 ==

== ENCOUNTER 2021-03-16 09:20 | Day surgery (SDC) | payer MEDICAID, SELFPAY ==
[2021-03-14 11:46] VITALS: BMI 23.6
[2021-03-16] VITALS (7 sets, daily range): BP systolic 121–150; BP diastolic 87–93; PULSE 90–126; RESP 18; TEMP 36.1–36.5; O2SAT 96–98
--- NOTE | 2021-03-16 10:10 | HMH.ANESCL ---
[facility] Anesthesia Checklist - Patient Identification Patient Identification: Arm Band - Structural Data Admitted From: Home Planned Operative Procedure/s: colonoscopy Consent for Planned Operative Procedure(s) Verified: Yes Verified Documents: Surgical Consent, History and Physical - NPO Status Verified Time NPO: 00:00 - Additional verifications Anesthesia Reactions: No - Airway Assessment C-Spine Mobility Assessed: Yes (mp2) TMJ Mobility Assessed: Yes Dentition: Dentures-good fit - Neurological Assessment Level of Consciousness: Awake, Alert - Anesthesia Plan Anesthesia Risk discussed: Yes Anesthesia Plan: Verified ASA Class: III Anesthesia Type: MAC [facility] History I have reviewed the patient's past medical history: Yes Medical History: Reports:: Chronic Obstructive Pulmonary Disease (COPD) (Takes as needed inhalers rarely), Gastroesophageal Reflux Disease(GERD), Hypertension (Previous medications for hypertension have caused orthostasis) Denies:: Cancer, Diabetes Mellitus Type 1, Diabetes Mellitus Type 2, Internal Pacemaker, MRSA, Seizures *Have you ever received a pneumonia vaccine?: No *Have you received a flu vaccine this season?: Yes Other Medical History: Reports: Anemia Anesthesia experience/problems:: nac Other Surgeries: Yes: , Other. No: Pacemaker Amputation: No Fractures: No - *Social History Last grade of school completed: High school graduate Smoking Status: Current every day smoker Tobacco Type: cigarettes # Packs/Day (cigarettes): 1 Alcohol Intake: never Substance Use Type: denies use *Occupational Status:: unemployed Housing: house Household Members: family *Travel in the last 8 weeks: None Family Hx:: No significant family history
--- NOTE | 2021-03-16 10:40 | HMH.PROC ---
[facility] Procedure Note Procedure Note:: Colonoscopy Procedure Report: Colonoscopy with cold snare polypectomy Endoscopist: Lauri Barr II, MD Referring physician: Rodo Cordova M.D. Date of Procedure: March 16, 2021 Equipment: Olympus 190 variable stiffness pediatric colonoscope Sedation: MAC sedation Indication: Mrs. Mendoza is a 61-year-old female with prior upper abdominal pain. [facility] and had a large and deep proximal gastric ulceration with margination and deep ulcer base. Biopsies of the margin and base of the ulcer were benign. She had been on high-dose ibuprofen 800 mg by mouth 3 times a day. She also has some chronic pancreatitis. Her CEA level was elevated at 9.0. She also had moderate anemia (hemoglobin 9.3 and hematocrit 31.1) possibly related to the gastric ulcer. The patient does have some chronic constipation for which she is taking the Linzess and misoprostol. She has never had a colonoscopy. Procedure: Prior to the procedure, a history and physical exam was performed, and patient's medications and allergies were reviewed. The risks, benefits and alternatives of the sedation and procedure were discussed with the patient. All questions were answered and informed consent was obtained. The patient was brought to the procedure room. Patient identification and proposed procedure were verified by the physician and the nurse. The patient was placed in a left lateral decubitus position and the scope was passed under direct vision. Throughout the procedure, the patient's blood pressure, pulse, and oxygen saturations were monitored continuously. The colonoscopy was accomplished without difficulty. The patient tolerated the procedure well. Findings: On digital rectal examination there was normal rectal tone. There were no external hemorrhoids. The colonoscope was introduced through the anal canal to the rectum and advanced to the cecum. The ileocecal valve and appendiceal orifice were identified. The scope was advanced a short distance into the ileum which appeared grossly normal. The scope was then withdrawn into the colon. The cecum, ascending, transverse, descending and sigmoid colon were grossly normal. There was a very flat diminutive polyp in the rectum that was 3 to 4 mm and removed via cold snare polypectomy. There were no other mucosal abnormalities identified. Upon retroflexion within the rectum there were grade 1-2 internal hemorrhoids.The preparation was excellent throughout with [place] Preparation Score of 9. The cecal time was 12 minutes. Impression: 1. Diminutive rectal polyp 2. Grade 1-2 internal hemorrhoids Plan: I suspect that this is a hyperplastic polyp and if so, she will not require surveillance colonoscopy again for 10 years. I would continue Linzess daily which is helping to control her constipation. This also is improved with the misoprostol. The elevated CEA is still worrisome and it is important that we repeat EGD in 4 weeks (scheduled April 20, 2021) to assess for healing and repeat biopsies of this large gastric ulceration in the gastric cardia.
== END 2021-03-16 11:41 | disposition home or self-care (01) ==
LOC: OUTP 09:21
PROVIDERS: PCP Internal Medicine Adolescent Medicine; Visit Provider Internal Medicine Gastroenterology
PROC: 0DJD8ZZ Inspection of Lower Intestinal Tract, Via Natural or Artificial Opening Endoscopic (ICD-10-PCS; CPT 45378; principal; 2021-03-16 09:30)
DX: K62.1 Rectal polyp (principal); K64.0 First degree hemorrhoids; K86.1 Other chronic pancreatitis; Z87.19 Personal history of other diseases of the digestive system; D64.9 Anemia, unspecified; K59.09 Other constipation; J44.9 Chronic obstructive pulmonary disease, unspecified; K21.9 Gastro-esophageal reflux disease without esophagitis; I10 Essential (primary) hypertension; Z72.0 Tobacco use; Z88.8 Allergy status to other drugs, medicaments and biological substances; Z91.040 Latex allergy status
CPT/HCPCS: 45385

== ENCOUNTER → 2021-04-09 08:04 | Outpatient (CLI) | payer MEDICAID, SELFPAY ==
--- NOTE | 2021-04-09 08:08 | XR_ITS ---
PROCEDURE: XR DEXA AXIAL SKELETON CLINICAL HISTORY: ROUTINE MEDICAL EXAM COMPARISON: No exams were available for comparison FINDINGS: The right hip BMD is 0.720 with a T-score of -1.8. The left hip BMD is 0.625 with a T-score of -2.6. The lumbar spine BMD is 0.922 with a T-score of -1.1. IMPRESSION: This patient is considered osteoporotic according to the World Health Organization criteria. Fracture risk is high. Treatment is advised. Based on these results a follow-up exam is recommended in 1 year. Dictated by: Varghese Godinez MD 04/10/2021 07:56 Varghese Godinez MD in [facility] 04/10/2021 07:56
--- NOTE | 2021-04-09 08:08 | MM_ITS ---
PROCEDURE INFORMATION: Exam: MG Screening 3D Mammography Exam date and time: 04/09/2021 8:08 AM Age: 61 years old Clinical indication: Encounter for screening mammogram for malignant neoplasm of breast TECHNIQUE: Imaging protocol: Screening tomosynthesis and 2D mammography including computer-aided detection (CAD) when performed. COMPARISON: No relevant prior studies available. FINDINGS: MAMMOGRAPHY: Breast composition: The breast tissue is composed of scattered areas of fibroglandular density. Mass: None. Architectural distortion: None. Calcifications: No suspicious calcifications. Asymmetric density: None. Skin thickening: None. Axillary adenopathy: None. IMPRESSION: No mammographic evidence of malignancy. Annual screening is recommended unless otherwise clinically indicated. ASSESSMENT: BI-RADS Category 1: Negative
--- NOTE | 2021-04-09 08:08 | CT_ITS ---
PROCEDURE: CT LUNG SCREENING CLINICAL INDICATION: PERSONAL HX OF NICOTINE DEPENDENCE COMPARISON: No exams were available for comparison TECHNIQUE: The exam was performed on a GE Light Speed [address] scanner using 2.90 mGy CTDI. A low dose helical CT CHEST was performed on a multi-detector scanner. All CT scans at the facility use one or more dose reduction, viz: automated exposure control, ma/kV adjustment per patient size (including targeted exams where dose is matched to indication, i.e. head), or iterative reconstruction technique. The LDCT was performed in a facility that meets the criteria for the screening program. Data regarding this exam was submitted to ACR which is an approved registry. The order for this exam indicates that it came as a result of a lung cancer screening counseling shard decision-making visit that included all the elements required of such a visit including smoking cessation. The radiologist interpreting this exam meets the CMS criteria for the LDCT lung cancer screening program. The exam is reported using the Lung-RADS classification scale and reported to the ACR registry. NOTE: This study was performed for the specific purposes of lung cancer screening and is not an alternative to diagnostic chest CT. RADIATION DOSE: CTDI vol(CT dose Index-volume) = 2.90mG DLP (Dose Length Product) = 108.90 mGcm FINDINGS: COPD changes with centrilobular emphysema. Atelectatic or fibrotic changes in the lung bases. No suspicious nodules identified. OTHER FINDINGS: Mildly enlarged thyroid gland. Scattered small mediastinal lymph nodes. Coronary artery calcifications. Cholelithiasis. 4 mm stone lower pole left kidney. IMPRESSION: Lung-RADS Category 1 Negative Follow-up: Continue annual screening with LDCT in 12 months Dictated by: Varghese Godinez MD 04/19/2021 06:57 Varghese Godinez MD in [facility] 04/19/2021 06:57
== END ==
PROVIDERS: PCP Internal Medicine Adolescent Medicine; Visit Provider Internal Medicine Adolescent Medicine
DX: Z12.31 Encounter for screening mammogram for malignant neoplasm of breast (principal); Z13.820 Encounter for screening for osteoporosis; Z78.0 Asymptomatic menopausal state; Z87.891 Personal history of nicotine dependence; Z12.2 Encounter for screening for malignant neoplasm of respiratory organs
CPT/HCPCS: 71271; 77063; 77067; 77080

== ENCOUNTER → 2021-05-03 08:47 | Outpatient (POV) | payer MEDICAID, SELFPAY ==
[2021-05-03 09:06] VITALS: BP 141/96; PULSE 98; RESP 18; O2SAT 98; BMI 24.3
--- NOTE | 2021-05-03 10:02 | HMH.PMCON ---
Assessment and Plan (1) Low back pain Status: Chronic Category: Medical Code(s): M54.5 - Low back pain (2) Lumbar radiculopathy Status: Chronic Category: Medical Code(s): M54.16 - Radiculopathy, lumbar region (3) Osteoarthritis of right hip Status: Chronic Category: Medical Code(s): M16.11 - Unilateral primary osteoarthritis, right hip - Assessment and plan all Dx Assessment and Plan for all problems:: Patient demonstrates her symptoms in detail today. She does imaging of her right hip that is showing severe erosive osteoarthritic changes to her right hip. We discussed an orthopedic consult before proceeding with injective therapy. She does have spondylosis and is complaining pain when leaning forward, however, I do feel irregular her pain is stemming from her hip. We will schedule her for an orthopedic consult and see her back in the clinic afterwards for reevaluation of symptoms. She has been instructed to contact clinic if she has an concerns for next morning. Patient has been instructed to contact the clinic with any concerns before the next appointment. Dr. Tinoco has reviewed this note and agrees with this plan of care. This note was dictated using voice recognition software and make contain errors or omissions. HPI - Data of Consult Patient: new to practice Consult date: 05/03/21 Requesting Physician: Temi Ocampo APRN Primary Care Provider: Rodo Cordova MD - Consult Narrative Reason for consult: Low back pain, bilateral lower extremity pain History of present illness: Ms. Mendoza is a 61 year old female who presents today for consultation for chronic low back pain and right hip and leg pain. Patient says this pain has been ongoing for approximately 10 years. Patient was referred to us by Dr. Mccrary. Patient says that she is unable to stand or walk due to significant pain. She is using a cane. She is also having numbness and tingling from her hip, lateral thigh on the right side, and knee. She also says she has sporadic areas to her calf area that become numb as well. She says that the pain is worse with standing and walking. It takes her 10 to 15 minutes to walk 100 feet due to pain. She previously took ibuprofen but has since stopped due to a history of GI issues. She has tried physical therapy and does continue with home stretching. Patient rates her pain a 6 out of 10 today. CC: Temi Ocampo APRN [facility] History I have reviewed the patient's past medical history: Yes Medical History: Reports:: Chronic Obstructive Pulmonary Disease (COPD) (Takes as needed inhalers rarely), Gastroesophageal Reflux Disease(GERD), Hypertension (Previous medications for hypertension have caused orthostasis), MRSA Denies:: Cancer, Diabetes Mellitus Type 1, Diabetes Mellitus Type 2, Internal Pacemaker, Seizures *Have you ever received a pneumonia vaccine?: No *Have you received a flu vaccine this season?: Yes Other Medical History: Reports: Anemia Other Surgeries: Yes: , Other. No: Pacemaker Amputation: No Fractures: No - *Social History Smoking Status: Current every day smoker Tobacco Type: cigarettes # Packs/Day (cigarettes): 1 Alcohol Intake: former Substance Use Type: denies use *Occupational Status:: unemployed Housing: house Household Members: family *Travel in the last 8 weeks: None Family Hx:: Cancer, Hypertension Review of Systems - Review of Systems Review of Systems General: No recent weight changes, no fever, no sleep disturbances Respiratory: No cough, no shortness of air, no recurring pulmonary infections Cardiovascular/peripheral vascular: No chest pain, no palpitations, no edema, no shortness of breath Gastrointestinal: No new onset incontinence, normal bowel movements reported Genitourinary: No new onset incontinence Musculoskeletal: Low back pain with radiation into right hip, right lower extremity with numbness and tingling Psychiatric: Nor
== END ==
PROVIDERS: PCP Internal Medicine Adolescent Medicine; Visit Provider Clinical Nurse Specialist Family Health
DX: M54.5 Low back pain (principal); M54.16 Radiculopathy, lumbar region; M16.11 Unilateral primary osteoarthritis, right hip
CPT/HCPCS: 99202; G0463

== ENCOUNTER → 2021-12-31 15:39 | Outpatient (CLI) | payer MEDICAID, SELFPAY ==
--- NOTE | 2021-12-31 | XR_ITS ---
PROCEDURE INFORMATION: Exam: XR Left Knee Exam date and time: 12/31/2021 4:05 PM Age: 61 years old Clinical indication: Pain; Knee; Bilateral; Additional info: Indra knee pain TECHNIQUE: Imaging protocol: XR Left knee. Views: 3 views. COMPARISON: No relevant prior studies available. FINDINGS: Bones/joints: No acute fracture or dislocation. Minimal degenerative tibial spine osteophyte formation. Joint spaces are preserved. Soft tissues: Normal. Vasculature: Atherosclerotic vascular disease. IMPRESSION: No acute fracture or dislocation.
--- NOTE | 2021-12-31 | XR_ITS ---
PROCEDURE INFORMATION: Exam: XR Right Knee Exam date and time: 12/31/2021 4:05 PM Age: 61 years old Clinical indication: Pain; Knee; Bilateral TECHNIQUE: Imaging protocol: XR Right knee. Views: 3 views. COMPARISON: No relevant prior studies available. FINDINGS: Bones/joints: Joint spaces are preserved. No acute fracture or dislocation. Soft tissues: Normal. Vasculature: Atherosclerotic vascular disease. IMPRESSION: No acute fracture or dislocation.
== END ==
PROVIDERS: PCP Internal Medicine Adolescent Medicine; Visit Provider Nurse Practitioner Family
DX: M25.562 Pain in left knee (principal); M25.561 Pain in right knee; M12.9 Arthropathy, unspecified
CPT/HCPCS: 73562